=== PATIENT | male | born 1955 | race Caucasian/White ===

== ENCOUNTER 2018-10-12 13:41 | Emergency (ER) | payer OTHER, SELFPAY ==
[2018-10-12 13:49] VITALS: BP 165/90; PULSE 64; RESP 18; TEMP 36.6; O2SAT 96
--- NOTE | 2018-10-12 14:02 | W.ED.GENAD ---
Discharge Plan Disposition Patient Disposition: HOME Condition: Stable Discharge Details Chief Complaint: Laceration Clinical Impression: Laceration of ankle, left Primary Care Provider: Masha,Local ED Provider: Boone Tanner Home Meds and New Rx's Prescriptions: Continued lisinopril 40 mg Tablet 40 mg/day PO RF: 0 labetalol 300 mg Tablet 150 mg PO BID RF: 0 Xarelto 10 mg Tablet 10 mg PO DAILY RF: 0 Discharge Instructions Instructions: Laceration (ED) Additional Instructions: have the suture and 10 maritza removed in 7-10 days if you have redness spreading from the wound or yellow/white discharge retrn to the emergency department Medical Decision Making 63 yo male with hx of afib on xarelto, last tetanus a year ago per pt, comes in with left heal laceration. States someone at work hit the area with a fork lift, did not fall or hit head. Has a 7cm laceration to the left posterior heel. Full rom of the ankle and foot without pain in metatarsals, only has pain around lac with no visible or palpable bony deformity. Will xray to eval for fx and close with sutures to control the bleeding closed wound without complications, xray negative per and on my read. ADvised to have them removed in 7-10 days where he lives in [place] as he lives 3 hours away and indications to return sooner such as infection Differential Diagnosis laceration, abrasion, fx Imaging Data Radiologic Study: Attestation: I personally reviewed and interpreted this imaging study as follows: Imaging: X-Ray Radiologist's impression: no acute findings per dr. be [facility] General Mode of arrival: ambulatory. Date/Time Provider Initiated Documentation: 10/12/18 13:52. Limitations to Documentation: no limitations. Information obtained by: patient. History of Present Illness 63 year old M presents to the emergency department with the chief complaint of left foot laceration, described as moderate, with intensity rated at 4. and is localized to the left and lower extremity. Patient reports no radiation. Patient started experiencing this hour(s) (1) and it has been constant. No relieving factors improve symptom(s), No exacerbating factors reported . Patient notes no other symptoms.. Patient did receive the following treatments prior to arrival, none Related Data Home Medications Medication Instructions Recorded Confirmed Xarelto 10 mg PO DAILY 10/12/18 10/12/18 labetalol 150 mg PO BID 10/12/18 10/12/18 lisinopril 40 mg/day PO 10/12/18 Allergies Allergy/AdvReac Type Severity Reaction Status Date / Time Penicillins Allergy Severe Other (See Unverified 10/12/18 13:54 Comment) vancomycin AdvReac Unknown Other (See Unverified 10/12/18 13:55 Comment) General Stated Complaint: Laceration DL: 3 Review of Systems Review of Systems All systems reviewed & are unremarkable except as noted in HPI and below Constitutional Denies chills, Denies fever(s) and Denies weakness Cardiovascular Denies chest pain and Denies dyspnea Respiratory Denies dyspnea Gastrointestinal Denies abdominal pain, Denies nausea and Denies vomiting Musculoskeletal Denies joint swelling Integumentary/Breasts Denies rash Neurologic Denies weakness Allergic/Immunologic Denies urticaria PFSH Social History Smoking/Tobacco Use Status: Current every day Exam Const General: no acute distress Orientation: alert HENMT Head: normal to inspection Ears: external ears normal General nose exam: external nose normal Mouth: moist mucous membranes Eyes General: appearance normal, both eyes and all related structures Neck Neck: normal visual inspection Resp Effort & Inspection: normal respiratory effort and able to speak in complete sentences Cardio Rate: regular rate Skin General skin exam: no rashes or lesions noted Neuro General: alert and oriented x3 Extrem General: normal to inspection Psych Mental Status: mental status grossly normal Course Vital Signs Temperature 36.6 C 10/12/18 13:49 Pulse 64 10/12/18 13:49 Respiratory Rate 18 10/12/18 13:49 Blood Pressure 165/90 H 10/12/18 13:49 Pulse Oximetry 96 10/12/18 13:49 Temperature 36.6 C 10/12/18 13:49 Temperature Source Skin 10/12/18 13:49 Pulse 64 10/12/18 13:49 Respiratory Rate 18 10/12/18 13:49 Respiratory Effort 10/12/18 13:49 Blood Pressure 165/90 H 10/12/18 13:49 Blood Pressure Position Supine 10/12/18 13:49 Pulse Oximetry 96 10/12/18 13:49 Oxygen Delivery Method Room Air 10/12/18 13:49 Oxygen Flow Rate 0 10/12/18 13:49 Procedures Laceration Laceration 1: Site: lower extremity Side (If applicable): left Size (cm): 7 Description: linear Depth: simple, single layer Local Anesthetic: Lidocaine 1% and with Epi Amount of anesthesia used (mL): 10 Pre-repair: wound explored and irrigated extensively Skin layer closed with: nylon Size (cm): 6-0 and other (1 running suture, 10 maritza placed)
--- NOTE | 2018-10-12 14:05 | ED.GENADUL_ITS ---
Discharge Plan Disposition Patient Disposition: HOME Condition: Stable Discharge Details Chief Complaint: Laceration Clinical Impression: Laceration of ankle, left Primary Care Provider: Masha,Local ED Provider: Boone Tanner Home Meds and New Rx's Prescriptions: Continued lisinopril 40 mg Tablet 40 mg/day PO RF: 0 labetalol 300 mg Tablet 150 mg PO BID RF: 0 Xarelto 10 mg Tablet 10 mg PO DAILY RF: 0 Discharge Instructions Instructions: Laceration (ED) Additional Instructions: have the suture and 10 maritza removed in 7-10 days if you have redness spreading from the wound or yellow/white discharge retrn to the emergency department Medical Decision Making 63 yo male with hx of afib on xarelto, last tetanus a year ago per pt, comes in with left heal laceration. States someone at work hit the area with a fork lift, did not fall or hit head. Has a 7cm laceration to the left posterior heel. Full rom of the ankle and foot without pain in metatarsals, only has pain around lac with no visible or palpable bony deformity. Will xray to eval for fx and close with sutures to control the bleeding closed wound without complications, xray negative per and on my read. ADvised to have them removed in 7-10 days where he lives in [place] as he lives 3 hours away and indications to return sooner such as infection Differential Diagnosis laceration, abrasion, fx Imaging Data Radiologic Study: Attestation: I personally reviewed and interpreted this imaging study as follows: Imaging: X-Ray Radiologist's impression: no acute findings per dr. be [facility] General Mode of arrival: ambulatory . Date/Time Provider Initiated Documentation: 10/12/18 13:52 . Limitations to Documentation: no limitations . Information obtained by: patient . History of Present Illness 63 year old M presents to the emergency department with the chief complaint of left foot laceration, described as moderate, with intensity rated at 4. and is localized to the left and lower extremity. Patient reports no radiation. Patient started experiencing this hour(s) (1) and it has been constant. No relieving factors improve symptom(s), No exacerbating factors reported . Patient notes no other symptoms.. Patient did receive the following treat ments prior to arrival, none Related Data Home Medications Medication Instructions Recorded Confirmed Xarelto 10 mg PO DAILY 10/12/18 10/12/18 labetalol 150 mg PO BID 10/12/18 10/12/18 lisinopril 40 mg/day PO 10/12/18 Allergies Allergy/AdvReac Type Severity Reaction Status Date / Time Penicillins Allergy Severe Other (See Unverified 10/12/18 13:54 Comment) vancomycin AdvReac Unknown Other (See Unverified 10/12/18 13:55 Comment) General Stated Complaint: Laceration DL: 3 Review of Systems Review of Systems All systems reviewed & are unremarkable except as noted in HPI and below Constitutional Denies chills, Denies fever(s) and Denies weakness Cardiovascular Denies chest pain and Denies dyspnea Respiratory Denies dyspnea Gastrointestinal Denies abdominal pain, Denies nausea and Denies vomiting Musculoskeletal Denies joint swelling Integumentary/Breasts Denies rash Neurologic Denies weakness Allergic/Immunologic Denies urticaria PFS Social History Smoking/Tobacco Use Status: Current every day Exam Const General: no acute distress Orientation: alert HENMT Head: normal to inspection Ears: external ears normal General nose exam: external nose normal Mouth: moist mucous membranes Eyes General: appearance normal, both eyes and all related structures Neck Neck: normal visual inspection Resp Effort & Inspection: normal respiratory effort and able to speak in complete sentences Cardio Rate: regular rate Skin General skin exam: no rashes or lesions noted Neuro General: alert and oriented x3 Extrem General: normal to inspection Psych Mental Status: mental status grossly normal Course Vital Signs Temperature 36.6 C 10/12/18 13:49 Pulse 64 10/12/18 13:49 Respiratory Rate 18 10/12/18 13:49 Blood Pressure 165/90 H 10/12/18 13:49 Pulse Oximetry 96 10/12/18 13:49 Temperature 36.6 C 10/12/18 13:49 Temperature Source Skin 10/12/18 13:49 Pulse 64 10/12/18 13:49 Respiratory Rate 18 10/12/18 13:49 Respiratory Effort 10/12/18 13:49 Blood Pressure 165/90 H 10/12/18 13:49 Blood Pressure Position Supine 10/12/18 13:49 Pulse Oximetry 96 10/12/18 13:49 Oxygen Delivery Method Room Air 10/12/18 13:49 Oxygen Flow Rate 0 10/12/18 13:49 Procedures Laceration Laceration 1: Site: lower extremity Side (If applicable): left Size (cm): 7 Description: linear Depth: simple, single layer Local Anesthetic: Lidocaine 1% and with Epi Amount of anesthesia used (mL): 10 Pre-repair: wound explored and irrigated extensively Skin layer closed with: nylon Size (cm): 6-0 and other (1 running suture, 10 maritza placed)
--- NOTE | 2018-10-12 14:14 | NUR.NOTE ---
patient has laceration to left heel, uncontrolled bleeding, MD in room approximating wound Nursing Note:
--- NOTE | 2018-10-12 14:24 | DI.RAD_ITS ---
SYMPTOMS/DIAGNOSIS: FORKLIFT INJURY, LACERATION, ? FX LEFT ANKLE: There is no evidence of a fracture or dislocation. No soft tissue foreign body is demonstrated. There are degenerative changes involving the calcaneus with spurring noted at the insertion of the Achilles aponeurosis. Also, there is a tiny calcaneal spur. Metallic maritza overlie the site of a laceration.
[2018-10-12 15:45] VITALS: BP 161/95; PULSE 64; O2SAT 95
--- NOTE | 2018-10-12 15:46 | NUR.NOTE ---
left foot dressed with bactracin under gauze wrap and madina dressing Nursing Note:
--- NOTE | 2018-10-12 16:17 | NUR.NOTE ---
patient received crutch teaching with return demonstration, patient home with gilbert Nursing Note:
== END 2018-10-12 16:11 | disposition home or self-care (01) ==
PROVIDERS: Emergency Provider Emergency Medicine
DX: S91.311A Laceration without foreign body, right foot, initial encounter (principal); V83.7XXA Person on outside of special industrial vehicle injured in nontraffic accident, initial encounter
CPT/HCPCS: 12002; 73610; E0114